=== PATIENT | female | born 1980 | race Caucasian/White ===

== ENCOUNTER 2018-04-11 16:16 | Emergency (ER) | payer OTHER, BC ==
[~2018-04-11] VITALS: Ht 154.9 cm; Wt 59.5 kg
[~2018-04-11 16:16] MED LIST: AZITHROMYCIN250 MG PO; HYPROMELLOSE2.5 %; IBUPROFEN200 MG; LEVOTHYROXIN50 MC1 PO; NO HOME MEDS; PAROXETINE20 MG PO; TOBRAMYCIN0.3 % OP; ZITHROMAX250 MG PO; ZITHROMAX500 MG PO
[2018-04-11 17:45] VITALS: BP 114/62
== END 2018-04-11 17:45 | disposition home or self-care (01) | DRG 605 ==
LOC: ED 16:16
DX: S60.052A Contusion of left little finger without damage to nail, initial encounter (principal); W23.1XXA Caught, crushed, jammed, or pinched between stationary objects, initial encounter; Y93.89 Activity, other specified; Y92.219 Unspecified school as the place of occurrence of the external cause; Y99.0 Civilian activity done for income or pay

== ENCOUNTER 2019-05-29 | Emergency (ER) | payer OTHER, BC ==
[2019-05-29 13:58] LABS: URINE BILIRUBIN - DIPSTICK NEGATIVE (NEGATIVE); URINE BLOOD DIPSTICK SMALL (NEGATIVE); URINE CLARITY CLEAR; URINE COLOR YELLOW; URINE GLUCOSE - DIPSTICK NEGATIVE (NEGATIVE); URINE KETONE 40 mg/dL (NEGATIVE); URINE LEUK ESTERASE NEGATIVE (Negative); URINE PROTEIN - DIPSTICK NEGATIVE (NEG-TRACE); URINE SPECIFIC GRAVITY 1.025; URINE UROBILINOGEN - DIPSTICK 0.2 E.U./dL (0.2)
[2019-05-29 14:00] LABS: URINE NITRITE - DIPSTICK NEGATIVE (Negative)
[2019-05-29] MEDS ORDERED: NUVARING PO (14:02)
[2019-05-29] MEDS ORDERED: DESLORATADINE5 MG PO (14:02)
[2019-05-29] MEDS ORDERED: ONDANSETRON HCL4 MG PO (14:02)
[2019-05-29] MEDS ORDERED: TIROSINT175 MCG PO (14:04)
[2019-05-29] MEDS ORDERED: LEVOTHYROXIN112 MC1 PO (14:05)
[2019-05-29 14:09] LABS: URINE EPITHELIAL CELLS RARE EPI/hpf (0-FEW); URINE WBC 0-2 WBC/hpf (0-5)
[2019-05-29] MEDS ORDERED: ZOFRAN4 MG/TAB PO (15:17)
[2019-05-29] MEDS ORDERED: FLEXERIL5 MG PO (15:17)
== END 2019-05-29 15:25 | disposition home or self-care (01) | DRG 552 ==
DX: M54.5 Low back pain (principal); M54.2 Cervicalgia; M62.830 Muscle spasm of back; V43.92XA Unspecified car occupant injured in collision with other type car in traffic accident, initial encounter

== ENCOUNTER 2022-08-02 08:05 | Emergency (ER) | payer BC ==
[2022-08-02] VITALS (17 sets, daily range): BP systolic 86–125; BP diastolic 50–91
[~2022-08-02] VITALS: Ht 154.9 cm; Wt 63.0 kg
[~2022-08-02 08:05] MED LIST changes: +DESLORATADINE5 MG PO; +FLEXERIL5 MG PO; +LEVOTHYROXIN112 MC1 PO; +NUVARING PO; +ONDANSETRON HCL4 MG PO; +TIROSINT175 MCG PO; +ZOFRAN4 MG/TAB PO
[2022-08-02 09:06] LABS: BASO% 0.6 % (0-3); EOS% 9.2 % (0-8); HEMATOCRIT 42.3 % (37.0-47.0); HEMOGLOBIN 13.9 g/dl (12.0-16.0); IMMATURE GRANULOCYTES 0.3 % (0.0-5.0); MEAN CELL VOLUME 90.6 fL CALC (80.0-100.0); MEAN CORPUSCULAR HGB 29.8 pG CALC (26.0-32.0); MEAN CORPUSCULAR HGB CONC 32.9 g/dL CAL (32.0-36.0); NEUT# 3.83 thou/uL (2.00-7.15); NEUT% 56.9 % (42-76); RED BLOOD COUNT 4.67 mill/uL (4.20-5.60); RED CELL DISTRI WIDTH 12.6 % (11.5-15.5)
[2022-08-02 09:19] LABS: ALBUMIN 4.6 g/dL (3.2-5.0); ALKALINE PHOSPHATASE 82 u/l (38-126); ANION GAP 12 (6-22 (CALC)); BILIRUBIN, TOTAL 0.3 mg/dL (0.02-1.3); BUN 15 mg/dL (7-17); BUN/CREATININE RATIO 27 (12-20 (CALC)); CARBON DIOXIDE 27 mmol/l (22-30); CHLORIDE 104 mmol/l (95-108); CREATININE 0.6 mg/dL (0.5-1.0); GFR FOR AFR.AMER. > 60 ML/MIN (>=60 (CALC)); GFR OTHER RACES > 60 ML/MIN (>=60 (CALC)); POTASSIUM 4.2 mmol/l (3.5-5.1); SGOT/AST 26 u/l (14-36); SODIUM 139 mmol/l (137-146); TOTAL PROTEIN 7.5 g/dL (6.3-8.2)
[2022-08-02] MEDS ORDERED: ZOFRAN4 MG/TAB PO (13:07)
== END 2022-08-02 13:30 | disposition home or self-care (01) | DRG 392 ==
LOC: ED 08:05
PROVIDERS: Family Medicine
DX: R10.9 Unspecified abdominal pain (principal); R11.0 Nausea; F41.9 Anxiety disorder, unspecified; F32.A Depression, unspecified
CPT/HCPCS: Q9967

== ENCOUNTER 2024-07-19 15:43 | Emergency (ER) | payer BC ==
[~2024-07-19] VITALS: Ht 154.9 cm; Wt 63.0 kg
[2024-07-19] MEDS ORDERED: FLUOXETINE HCL10 MG PO (15:52)
[2024-07-19] MEDS ORDERED: LIDOcaine HCl 1% (Local Anesth.) 20 ML VIAL STI STA (16:02)
[2024-07-19] MEDS ORDERED: POVIDONE IODINE 0.5 OZ/BTL TOP ONE (16:05)
[2024-07-19] MEDS ORDERED: Diph, Acellular Pertussis, Tet 0.5 ML/VIAL (Tdap) SDV IM ONE (16:05)
[2024-07-19] MEDS ORDERED: DOXYCYC MONO100 M3 PO (16:07)
[2024-07-19 16:38] VITALS: BP 104/71
== END 2024-07-19 16:46 | disposition home or self-care (01) | DRG 605 ==
LOC: ED 15:43
PROC: 0HQGXZZ Repair Left Hand Skin, External Approach (ICD-10-PCS; principal; 2024-07-19)
DX: S61.412A Laceration without foreign body of left hand, initial encounter (principal); W26.0XXA Contact with knife, initial encounter; Y92.009 Unspecified place in unspecified non-institutional (private) residence as the place of occurrence of the external cause
CPT/HCPCS: 90715